=== PATIENT | female | born 1950 | race Caucasian/White ===

== ENCOUNTER 2018-02-13 15:33 | Day surgery (SDC) | payer OTHER ==
[~2018-02-13 15:33] MED LIST: LACTATED RINGER'S 1,000 ML IV*
[2018-02-13] MEDS ORDERED: DIPHENHYDRAMINE 50 MG INJ IV (17:00)
[2018-02-13] MEDS ORDERED: MEPERIDINE 25 MG INJ IV (17:00)
[2018-02-13] MEDS ORDERED: FENTAnyl 50 MCG/ML VIAL IV (17:00)
[2018-02-13] MEDS ORDERED: PROCHLORPERAZINE 10 MG INJ IV (17:00)
[2018-02-13] MEDS ORDERED: MIDAZOLAM 1 MG/ML 2 ML INJ (17:05)
[2018-02-13] MEDS ORDERED: ROPIVACAINE 0.5 % 30 ML VIAL (17:10)
[2018-02-13] MEDS ORDERED: FENTAnyl 50 MCG/ML VIAL (17:11)
[2018-02-13] MEDS ORDERED: PROPOFOL 20 ML (17:32)
[2018-02-13] MEDS ORDERED: LIDOCAINE 2% (SDV) 5 ML INJ (17:32)
[2018-02-13] MEDS ORDERED: FAMOTIDINE 20 MG INJ (17:36)
[2018-02-13] MEDS ORDERED: METOCLOPRAMIDE 10 MG INJ (17:36)
[2018-02-13] MEDS ORDERED: ONDANSETRON 4 MG INJ (17:36)
[2018-02-13] MEDS ORDERED: DEXAMETHASONE 4 MG/ML 1 ML INJ (17:36)
[2018-02-13] MEDS ORDERED: CLINDAMYCIN 900 MG/D5W (PMX) 50 ML IVPB (17:38)
[2018-02-13] MEDS: POLYMYXIN/BACITRACIN 1L IRRIG IRR ×2 (17:41→19:07)
[2018-02-13] MEDS ORDERED: POLYMYXIN/BACITRACIN 1L IRRIG (18:41)
[2018-02-13] MEDS: HYDROmorphONE 1 MG/5 ML IV SYRINGE IV (20:15)
[2018-02-13] MEDS: ONDANSETRON 4 MG INJ IV (20:15)
== END 2018-02-13 20:53 | disposition home or self-care (01) ==
LOC: SDS 15:33
DX: S52.022A Displaced fracture of olecranon process without intraarticular extension of left ulna, initial encounter for closed fracture (principal); S52.122A Displaced fracture of head of left radius, initial encounter for closed fracture; S53.492A Other sprain of left elbow, initial encounter; W19.XXXA Unspecified fall, initial encounter
CPT/HCPCS: 24343; 73080-LT